=== PATIENT | male | born 1950 | race Asian ===

== ENCOUNTER 2017-05-01 20:20 | Emergency (ER) | payer MEDICARE ==
[~2017-05-01] VITALS: Ht 175.3 cm; Wt 63.5 kg
[2017-05-01] MEDS ORDERED: Tetanus/Diptheria/Pertussis Vaccine 0.5ml Syr IM ONE (20:45)
[2017-05-01] MEDS ORDERED: Ketorolac 30mg Inj IV ONE (20:45)
[2017-05-01] MEDS ORDERED: Bacitracin Oint UD TOPIC ONE ×2 (21:25→21:30)
[2017-05-01] MEDS ORDERED: AUGMENTIN 875-1 EAC1 ORAL (21:39)
[2017-05-01] MEDS ORDERED: BACITRACIN15 GM TOPIC (21:39)
[2017-05-01 21:46] VITALS: BP 141/91
--- NOTE | 2017-05-03 07:44 | Emergency Room Report ---
History of Present Illness General Chief Complaint: Laceration Source: EMS Present Illness HPI 59-year-old male presents to ED with laceration to left leg. Carotid by EMS per states that he was working in his shop today when he cut his leg on some unknown metal object. Noted just below the left knee. Tetanus unknown. Denies any pain. Denies any fevers chills. Denies any other injuries. No other aggravating relieving factors. Denies any other associated symptoms Allergies: Coded Allergies: No Known Allergies (Unverified , 05/01/17) Patient History Past Medical History: none Past Surgical History: none Pertinent Family History: none Social History: Denies: smoking, alcohol use, drug use Immunizations: UTD Reviewed Nursing Documentation: PMH: Agreed, PSxH: Agreed Nursing Documentation-PMH Past Medical History: No Stated History Review of Systems All Other Systems: negative except mentioned in HPI Physical Exam Vital Signs Date Time Temp Pulse Resp B/P (MAP) Pulse Ox O2 Delivery O2 Flow Rate FiO2 05/01/17 20:14 98.4 101 19 141/91 98 Room Air Sp02 EP Interpretation: reviewed, normal General Appearance: no apparent distress, alert, GCS 15, non-toxic Head: normocephalic Eyes: bilateral eye normal inspection, bilateral eye PERRL ENT: normal ENT inspection Neck: normal inspection Respiratory: normal inspection Cardiovascular #1: normal inspection Gastrointestinal: normal inspection Rectal: deferred Genitourinary: no CVA tenderness Musculoskeletal: back normal Neurologic: alert, oriented x3, responsive, motor strength/tone normal, sensory intact, speech normal Psychiatric: judgement/insight normal, memory normal, mood/affect normal, no suicidal/homicidal ideation Skin: laceration - 5cm laceration below L knee. subcutaneous fat and muscle noted. no active bleeding Lymphatic: normal inspection Procedures Laceration/Wound Repair Laceration/Wound Repair : Consent: Verbal Wound Location: lower extremity Wound's Depth, Shape: into muscle, linear Wound Explored: clean Betadine Prep?: Yes Anesthesia: 1% Lidocaine Wound Debrided: minimal Wound Repaired With: sutures Suture Size/Type: 3:0, proline Layer Closure?: Yes Deep Layer Suture Size/Type: 3:0, other - vicryl Sterile Dressing Applied?: Yes Splint Applied?: No Sling Applied?: No Patient Tolerated: Well Complications: None Medical Decision Making Diagnostic Impression: Primary Impression: Laceration ER Course Hospital Course 67-year-old M presents to ED s/p laceration below L knee Clinical course Patient placed on stretcher. After initial history and physical I ordered tetanus shot. Anesthesia provided with lidocaine. Laceration required deep sutures, repaired w/o complication. bacitracin/Dressing applied. Diagnosis - laceration Stable and discharged to home with prescription for augmentin, bacitracin. wound Care instructions given. Followup with PMD in 7-10 days for suture removal. Return to ED if any signs of infection develop Last Vital Signs Date Time Temp Pulse Resp B/P (MAP) Pulse Ox O2 Delivery O2 Flow Rate FiO2 05/01/17 21:46 98.4 19 141/91 98 Room Air 05/01/17 20:14 101 Status: improved Disposition: HOME, SELF-CARE Condition: Stable Scripts Bacitracin (Bacitracin) 28.4 Gm Oint...g. 1 APPLIC TOPIC THREE TIMES A DAY, #28.4 GM Prov: FRANCISCO OTT M.D. 05/01/17 Amoxicillin/Potassium Clav 875-125* (AUGMENTIN 875-125 TABLET*) 1 Each Tablet 1 TAB ORAL TWICE A DAY, #14 TAB Prov: FRANCISCO OTT M.D. 05/01/17 Referrals: NOT CHOSEN [facility]/,REFERRING (PCP) Patient Instructions: Laceration Care, Adult Additional Instructions: have sutures removed in 7-10 days. return to ED if any signs of infection develop FRANCISCO OTT M.D. May 03, 2017 07:44
== END 2017-05-01 22:10 | disposition home or self-care (01) ==
LOC: EDBD 20:20 → EMR 20:38
DX: S81.812A Laceration without foreign body, left lower leg, initial encounter (principal); Z23 Encounter for immunization; W45.8XXA Other foreign body or object entering through skin, initial encounter; Y92.89 Other specified places as the place of occurrence of the external cause; Y99.0 Civilian activity done for income or pay
CPT/HCPCS: 12002; 90471; 90715; 96374; 96375; 99284; J1885; J2405